=== PATIENT | male | born 1970 | race American Indian/Alaskan Native ===

== ENCOUNTER 2022-04-22 14:38 | Emergency (ER) | payer SELFPAY ==
[2022-04-22 14:53] VITALS: BP 132/78
[2022-04-23] MEDS ORDERED: LORazepam 2 MG/ML VIAL ONE (15:43)
[2022-04-23] MEDS ORDERED: MORPHINE 4 MG/1 ML INJ ONE (15:43)
[2022-04-23] MEDS ORDERED: ONDANSETRON 4 MG/2 ML INJ ONE (15:46)
[2022-04-23] MEDS ORDERED: SODIUM CHLORIDE 0.9% 1000 ML 1,000 ML ONE (15:46)
== END 2022-04-22 19:00 | disposition left against medical advice (07) ==
LOC: ED 14:38
DX: M54.9 Dorsalgia, unspecified (principal); Z53.21 Procedure and treatment not carried out due to patient leaving prior to being seen by health care provider
CPT/HCPCS: J2060; J2270; J2405; J7030